=== PATIENT | female | born 1960 | race Two or more races ===

== ENCOUNTER 2024-11-17 14:15 | Inpatient (IN) | payer OTHER, MEDICAID ==
[~2024-11-17] VITALS: Ht 154.9 cm; Wt 72.4 kg
--- NOTE | 2024-11-17 14:48 | ED.PDOC ---
History of Present Illness HPI Anny 64F who is Malay speaking presents to the ER w/ no prior hx associated to the c/c of a RODRIGUEZ. Pt reports on having pressure like pain on the forehead/right adventism for 1 week which is associated w/ N/. Pt notes that her right eye is red, swollen and painful for the past 3 months. PMHx of DM. SHx of Appendectomy. Denies chills, fever, /V/D, SOB, CP or no other associated symptom's, modifiers, recent injuries or sick contacts at this time. Time Seen by MD: 14:35 Reviewed Notes: Nurses Notes, Medications, Allergies Allergies: Coded Allergies: NO KNOWN ALLERGIES (Unverified , 11/17/24) Information Source: Patient Mode of Arrival: Ambulatory Severity: Moderate Timing: Weeks Duration: Since onset Prehospital treatment: None Past Medical History PAST MEDICAL HISTORY: DM Surgical History: Appendectomy RN MED SURG History: No Pertinent RN MED SURG History Family History Family History: Reviewed,noncontributory to illness, Unknown Social History Smoker: Non-Smoker Alcohol: Denies ETOH Use Drugs: Denies Drug Use Lives In: Home Constitutional: denies: chills, diaphoresis, fatigue, fever, malaise, sweats, weakness, others EENTM: reports: eye pain, eye redness; denies: blurred vision, double vision, ear bleeding, ear discharge, ear drainage, ear pain, ear ringing, hearing loss, mouth pain, mouth swelling, nasal discharge, nose bleeding, nose congestion, nose pain, photophobia, tearing, throat pain, throat swelling, voice changes, others Respiratory: denies: cough, hemoptysis, orthopnea, SOB at rest, shortness of breath, SOB with excertion, stridor, wheezing, others Cardiovascular: denies: chest pain, dizzy spells, diaphoresis, Dyspnea on exertion, edema, irregular heart beat, left arm pain, lightheadedness, palpitations, PND, syncope, others Gastrointestinal: reports: nausea; denies: abdomen distended, abdominal pain, blood streaked bowels, constipated, diarrhea, dysphagia, difficulty swallowing, hematemesis, melena, poor appetite, poor fluid intake, rectal bleeding, rectal pain, vomiting, others Genitourinary: denies: abnormal vagina bleeding, burning, dyspareunia, dysuria, flank pain, frequency, hematuria, incontinence, pain, , vagina discharge, urgency, others Neurological: reports: headache; denies: dizziness, fainting, left sided numbness, left sided weakness, numbness, paresthesia, pre-existing deficit, right sided numbness, right sided weakness, seizure, speech problems, tingling, tremors, weakness, others Musculoskeletal: denies: back pain, gout, joint pain, joint swelling, muscle pain, muscle stiffness, neck pain, others Integumetry: denies: bruises, change in color, change in hair/nails, dryness, laceration, lesions, lumps, rash, wounds, others Allergic/Immunocompromised: denies: Difficulty Healing, Frequent Infections, Hives, Itching, others Hematologic/Lymphatic: denies: anemia, blood clots, easy bleeding, easy bruising, swollen glands, others Endocrine: denies: excessive hunger, excessive sweating, excessive thirst, excessive urination, flushing, intolerance to cold, intolerance to heat, unexplained weight gain, unexplained weight loss, others Psychiatric: denies: anxiety, bipolar disorder, depression, hopeless, panic disorder, schizophrenia, sleepless, suicidal, others All Other Systems: Reviewed and Negative Physical Exam General Appearance: Moderate Distress, Normal HEENT: Eye Lid (R) (Injected), Normal ENT Inspection, Pharynx Normal, TMs Normal Neck: Full Range of Motion, Non-Tender, Normal, Normal Inspection Respiratory: Chest Non-Tender, Lungs Clear, No Accessory Muscle Use, No Respiratory Distress, Normal Breath Sounds Cardiovascular: No Edema, No JVD, No Murmur, No Gallop, Normal Peripheral Pulses, Regular Rate/Rhythm Breast Exam: Deferred Gastrointestinal: No Organomegaly, Non Tender, No Pulsatile Mass, Normal Bowel Sounds, Soft Genitalia: Deferred Pelvic: Deferred Rectal: Deferred Extremities: No calf tenderness, Normal capillary refill, Normal inspection, Normal range of motion, Non-tender, No pedal edema Musculoskeletal : Apperance: Normal Neurologic: Alert, molder shoulder pad II-XII nml as Tested, No Motor Deficits, Normal Affect, Normal Mood, No Sensory Deficits Cerebellar Function: Normal Reflexes: Normal Skin: Dry, Normal Color, Warm Peripheral Pulses: 3+ Radial (R), 3+ Radial (L) Lymphatic: No Adenopathy Was a procedure done? Was a procedure done?: No Differential Dx Considerations may include: Anemia Electrolyte imbalance X-Ray, Labs, Meds, VS Vital Signs Date Time Temp Pulse Resp B/P (MAP) Pulse Ox O2 Delivery O2 Flow Rate FiO2 11/17/24 15:11 98.6 73 18 116/41 (66) 96 98.6 Lab Test 11/17/24 14:41 Range/Units White Blood Count 7.4 4.4-10.8 10^3/uL Red Blood Count 4.62 4.0-5.20 10^6/uL Hemoglobin 15.5 12.2-16.2 g/dL Hematocrit 45.3 36.0-46.0 % Mean Corpuscular Volume 98.2 80.0-100.0 fL Mean Corpuscular Hemoglobin 33.7 H 28.0-32.0 pg Mean Corpuscular Hemoglobin Concent 34.3 32.0-36.0 g/dL Red Cell Distribution Width 13.9 11.8-14.3 % Platelet Count 243 140-450 10^3/uL Mean Platelet Volume 7.0 6.9-10.8 fL Neutrophils (%) (Auto) 70.6 37.0-80.0 % Lymphocytes (%) (Auto) 24.3 10.0-50.0 % Monocytes (%) (Auto) 4.1 0.0-12.0 % Eosinophils (%) (Auto) 0.6 0.0-7.0 % Basophils (%) (Auto) 0.4 0.0-2.0 % Neutrophils # (Auto) 5.2 1.6-8.6 10 ^3/uL Lymphocytes # (Auto) 1.8 0.4-5.4 10 ^3/uL Monocytes # (Auto) 0.3 0-1.3 10 ^3/uL Eosinophils # (Auto) 0 0-0.8 10 ^3/uL Basophils # (Auto) 0 0-0.2 10 ^3/uL Nucleated Red Blood Cells 0.1 % Sodium Level 140 136-145 mmol/L Potassium Level 4.2 3.5-5.1 mmol/L Chloride Level 103 98-107 mmol/L Carbon Dioxide Level 30 20-31 mmol/L Anion Gap 7 5-15 Blood Urea Nitrogen 26 H 9-23 mg/dL Creatinine 1.20 H 0.550-1.02 mg/dL Glomerular Filtration Rate Calc 50 >90 mL/min BUN/Creatinine Ratio 21.7 H 10.0-20.0 Serum Glucose 193 H 74-106 mg/dL Calcium Level 10.6 H 8.7-10.4 mg/dL Patient alert pain Complaining of headache dizziness. Blood sugar elevated. WBC within normal limits. Establish intravenous access. Was given fluids. Was given meclizine. CT of the head reviewed does not show any acute changes. Possibly will need MRI. Hypercalcemia. Reviewed her history. Explained to the patient. Continue cardiac monitoring. Time of 1ST Reevaluation: 15:05 Reevaluation 1ST: Unchanged Patient Education/Counseling: Diagnosis, Treatment, Prognosis Family Education/Counseling: No Family Present Departure 1 Departure Time of Disposition: 15:34 Impression: Primary Impression: Uncontrolled diabetes mellitus Qualified Codes: E13.65 - Other specified diabetes mellitus with hyperglycemia Additional Impressions: Autonomic disorder Conjunctivitis Qualified Codes: H10.9 - Unspecified conjunctivitis Disposition: ADMITTED INPATIENT Admit to: Med Surg Condition: Guarded Critical Care Note Critical Care Time?: No Stability Stability form required: No Heart Score Heart Score: Heart Score Response (Comments) Value History Slightly Suspicious 0 EKG Normal 0 Age >65 2 Risk Factors >3 or Hx ASHD 2 Troponin N/A 0 Total 4 I personally scribed for CATRACHO TAN MD ([email or web address]) on 11/17/24 at 14:48. Electronically submitted by Nelson Lopez ([email or web address]). CATRACHO TAN MD Nov 17, 2024 14:48
[2024-11-17 15:00] LABS: Basophils # (auto) 0 10 ^3/uL (0-0.2); Basophils % (auto) 0.4 % (0.0-2.0); Eosinophils # (auto) 0 10 ^3/uL (0-0.8); Eosinophils % (auto) 0.6 % (0.0-7.0); Hematocrit 45.3 % (36.0-46.0); Hemoglobin 15.5 g/dL (12.2-16.2); Lymphocytes # (auto) 1.8 10 ^3/uL (0.4-5.4); Lymphocytes % (auto) 24.3 % (10.0-50.0); Mean Corpuscular Hemoglobin 33.7 pg (28.0-32.0); Mean Corpuscular Hgb Conc. 34.3 g/dL (32.0-36.0); Mean Corpuscular Volume 98.2 fL (80.0-100.0); Monocytes # (auto) 0.3 10 ^3/uL (0-1.3); Monocytes % (auto) 4.1 % (0.0-12.0); Neutrophils # (auto) 5.2 10 ^3/uL (1.6-8.6); Neutrophils % (auto) 70.6 % (37.0-80.0); Nucleated Red Blood Cells % 0.1 %; Platelet Count (auto) 243 10^3/uL (140-450); Red Blood Cells 4.62 10^6/uL (4.0-5.20); Red Cell Distribution Width 13.9 % (11.8-14.3); White Blood Cell 7.4 10^3/uL (4.4-10.8)
--- NOTE | 2024-11-17 15:05 | DVH ---
EXAM: CT HEAD WITHOUT CONTRAST INDICATION: tia TECHNIQUE: CT of the head without intravenous contrast. Radiation Dose : 1. Head: CT Dose: CTDI volume is 41 mGy. Dose-length product is 856 mGy*cm The dose indicators for CT are the volume Computed Tomography (CT) Dose Index (CTDIvol) and the Dose Length Product (DLP), and are measured in units of mGy and mGy-cm, respectively. These indicators are not patient dose, but values generated from the CT scanner acquisition factors. The report includes radiation exposure data for exposures received during this examination. COMPARISON: None FINDINGS: There is no evidence of acute intracranial hemorrhage, extra-axial collection, mass effect, midline s hift, herniation or hydrocephalus. The ventricles, sulci and cisterns are age appropriate. The pike-white differentiation is intact. Patchy periventricular and subcortical white matter hypoattenuation is nonspecific but may be related to small vessel ischemic disease. The visualized paranasal sinuses and mastoid air cells are clear. The surrounding soft tissues and osseous structures are unremarkable. IMPRESSION: No acute intracranial abnormality. Radiation optimization: All CT scans at this facility use at least one of these dose optimization aletha hniques: automated exposure control mA and/or kV adjustment per patient size (includes targeted exam s where dose is matched to clinical indication) or iterative reconstruction.
[2024-11-17 15:08] LABS: Anion Gap 7 (5-15); Carbon Dioxide 30 mmol/L (20-31); Chloride 103 mmol/L (98-107); Potassium 4.2 mmol/L (3.5-5.1); Sodium 140 mmol/L (136-145)
[2024-11-17 15:14] LABS: BUN/Creatinine Ratio 21.7 (10.0-20.0)
[2024-11-17 15:15] LABS: Blood Urea Nitrogen 26 mg/dL (9-23); Calcium 10.6 mg/dL (8.7-10.4); Glucose 193 mg/dL (74-106)
[2024-11-17 18:08] VITALS: PULSE 62; RESP 18; O2SAT 97
[2024-11-17 22:17] VITALS: PULSE 73; RESP 16; O2SAT 96
[2024-11-17] MEDS ORDERED: ACETAMINOPHEN 325 MG TAB PO PRN (23:00)
[2024-11-17] MEDS ORDERED: ONDANSETRON HCL 4 MG/2 ML VIAL IV PRN (23:00)
--- NOTE | 2024-11-17 23:05 | DVHHPRES ---
History of Present Illness Resident Creating Document: KATTY CHAIREZ RESIDENT Reason for Visit: dizziness, nausa History of Present Illness Patient is 64 year old female presents to the ED today with a chief complaint of headache that feels like pressure-like felt more in the frontotemporal area with associated nausea and dizziness for one week . Pain is disabling and rated 6/10 and does not radiate anywhere. There is no aggravating or relieving factor. Sometimes she feels tenderness in the temporal region however there was no associated changes in vision. 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 With regards to the dizziness, patient denied any pa lpitation or vertigo prior to experiencing the dizziness. She denies chest pain, fever nausea vomiting or diarrhea. Her blood pressure has been stable. CT head was negative. Urinalysis and UDS is pending. Past medical history: diabetes, cataracts, hypothyroidism and dry eyes Past surgical history: Benign tumor resection and on the right sclera Family history: hypertension Social history: Patient works as [employer], does not drink or smoke, has 8 children. Medication: Patient takes levothyroxine, simvastatin, glipizide, and Jardiance Review of Systems Review of Systems Constitutional: Denies fever no chills no feeling of malaise HEENT: headache; Denies ear pain, ear discharges, conjunctivitis, nasal di scharge throat pain Cardiovascular: Denies chest pain, palpitation, orthopnea, PND, or pedal edema Respiratory: Denies shortness of breath, cough cough, sputum production, hemoptysis, GI: Denies abdominal pain, nausea, vomiting, diarrhea, hematemesis, h ematochezia, : overflow urgency Endocrine: Denies unintentional weight gain or weight loss, feeling of hot flashes, Claudio: Denies easy bruising, bleeding disorders, epistaxis Musculoskeletal: Denies joint pains, muscle aches Psych: No evidence of depression, anneliese, suicidal ideation Allergies: Coded Allergies: NO KNOWN ALLERGIES (Unverified , 11/17/24) Medications Current Medications Medications Dose Ordered Sig/Bryan Route Start Time Stop Time Status Last Admin Dose Admin Sodium Chloride 1,000 ml @ 75 mls/hr [id number] IV 11/17/24 22:45 Exam Vital Signs Vital Signs Date Time Temp Pulse Resp B/P (MAP) Pulse Ox O2 Delivery O2 Flow Rate FiO2 11/17/24 22:17 73 16 96 Room Air* 0 21 11/17/24 22:17 98.7 125/67 (86) 98.7 Exam General Appearance: Alert, Oriented X3, Cooperative, No acute distress HEENT: Atraumatic, PERRLA, EOMI, Mucous membrane moist/pink Respiratory: Clear to auscultation, Normal air movement Cardiovascular: Regular rate, Normal S1, Normal S2, No murmurs, no chest wall tenderness Abdominal: NO distention, no tenderness, bowel sounds present, no scars noted Extremities: tingling sensation in her feet Skin: No rashes, No breakdown, No significant lesion Neuro: Normal gait, Normal speech, Strength at 5/5 X4 ext, Normal tone, Sensation intact, Cranial nerves 3-12 NL, Reflexes 2+ Psych/Mental Status: Mental status NL, Mood NL Labs/Xrays Labs Test 11/17/24 22:56 11/17/24 15:13 11/17/24 14:41 Range/Units POC Glucose 187 H 70-106 mg/dl White Blood Count 7.4 4.4-10.8 10^3/uL Red Blood Count 4.62 4.0-5.20 10^6/uL Hemoglobin 15.5 12.2-16.2 g/dL Hematocrit 45.3 36.0-46.0 % Mean Corpuscular Volume 98.2 80.0-100.0 fL Mean Corpuscular Hemoglobin 33.7 H 28.0-32.0 pg Mean Corpuscular Hemoglobin Concent 34.3 32.0-36.0 g/dL Red Cell Distribution Width 13.9 11.8-14.3 % Platelet Count 243 140-450 10^3/uL Mean Platelet Volume 7.0 6.9-10.8 fL Neutrophils (%) (Auto) 70.6 37.0-80.0 % Lymphocytes (%) (Auto) 24.3 10.0-50.0 % Monocytes (%) (Auto) 4.1 0.0-12.0 % Eosinophils (%) (Auto) 0.6 0.0-7.0 % Basophils (%) (Auto) 0.4 0.0-2.0 % Neutrophils # (Auto) 5.2 1.6-8.6 10 ^3/uL Lymphocytes # (Auto) 1.8 0.4-5.4 10 ^3/uL Monocytes # (Auto) 0.3 0-1.3 10 ^3/uL Eosinophils # (Auto) 0 0-0.8 10 ^3/uL Basophils # (Auto) 0 0-0.2 10 ^3/uL Nucleated Red Blood Cells 0.1 % Sodium Level 140 136-145 mmol/L Potassium Level 4.2 3.5-5.1 mmol/L Chloride Level 103 98-107 mmol/L Carbon Dioxide Level 30 20-31 mmol/L Anion Gap 7 5-15 Blood Urea Nitrogen 26 H 9-23 mg/dL Creatinine 1.20 H 0.550-1.02 mg/dL Glomerular Filtration Rate Calc 50 >90 mL/min BUN/Creatinine Ratio 21.7 H 10.0-20.0 Serum Glucose 193 H 74-106 mg/dL Calcium Level 10.6 H 8.7-10.4 mg/dL Assessment/Plan Assessment/Plan Assessment Rule out Giant cell Arteritis Uncontrolled diabetes mellitus with hyperglycemia Hyperlipidemia Hypertension Cataract Hypothyroidism Conjunctivitis Hypercalcemia Acute Kidney Injury Obesity Plan Give Tylenol normal IV fluid, NS Rule out GCA Moderate sliding scale Rule out possible Multiple myeloma Check ESR,CRP Check A1C continue home medication Diet: Diabetes diet Prophylaxis: DVT Goal of care discussed for more than 30 minutes: Full code Case and plan discussed with Dr. Lucas Plan discussed with: Patient, Son My Orders Orders - KATTY CHAIREZ RESIDENT Procedure Category Date Status Time Admit ADMIT 11/17/24 Transmitted 22:38 Code Status CODE 11/17/24 Transmitted 22:38 Vital Signs MOOSE 11/17/24 In Process 22:38 Review Orders With MOOSE 11/17/24 In Process Adm. 22:38 Notify Of Changes MOOSE 11/17/24 In Process From Base 22:38 Advance Directive MOOSE 11/17/24 In Process 22:38 Urinalysis LAB 11/17/24 Logged 22:38 Lipid Panel LAB 11/17/24 In Process 22:38 Patient Condition ORDERS 11/17/24 Transmitted 22:38 Allergies MOOSE 11/17/24 In Process 22:38 Hemoglobin A1c LAB 11/17/24 In Process 22:38 Notify Of Changes MOOSE 11/17/24 In Process From Base 22:38 Sodium Chloride 0.9% PHA 11/17/24 In Process 22:45 Basic Metabolic Panel LAB 11/18/24 Verified 04:00 Complete Blood Count LAB 11/18/24 Verified 04:00 Magnesium LAB 11/18/24 Verified 04:00 Drug Screen LAB 11/17/24 Logged 22:38 Erythrocyte LAB 11/17/24 In Process Sedimentation Rate 22:43 Parathyroid Hormone LAB 11/17/24 In Process Intact 22:43 C-Reactive Protein LAB 11/17/24 In Process 22:56 Acetaminophen Tablet PHA 11/17/24 Transmitted (Tylenol Tablet) 23:00 Regular Diet DIET 11/18/24 Transmitted Breakfast Ondansetron Hcl PHA 11/17/24 Transmitted (Zofran) 23:00 Ondansetron Hcl PHA 11/17/24 Transmitted (Zofran) 23:00 Enoxaparin Sodium PHA 11/17/24 Transmitted (Lovenox) 23:00 Enoxaparin Sodium PHA 11/18/24 Transmitted (Lovenox) 10:00 Date of Service: Nov 17, 2024 Billing Provider: SAMANTA LUCAS MD Common Visit Codes: [id number] INP/OBS CARE (HIGH) Secondary Visit Codes: [id number] CARE PLAN 30 MINUTES KATTY CHAIREZ RESIDENT Nov 17, 2024 23:05 SAMANTA LUCAS MD Nov 18, 2024 11:08
[2024-11-17 23:29] LABS: CRP High Sensitivity 0.34 mg/dL (<1.0)
[2024-11-17 23:35] VITALS: BP 140/67; PULSE 59; RESP 20; TEMP 98.7; O2SAT 95
[2024-11-18] VITALS (8 sets, daily range): BP systolic 110–125; BP diastolic 44–63; PULSE 56–64; RESP 15–17; TEMP 97.4–98.7; O2SAT 93–100
[2024-11-18 00:18] LABS: Erythrocyte Sedimentation Rate 24 mm/hr (0-20)
[2024-11-18] MEDS: ONDANSETRON HCL 4 MG/2 ML VIAL IV ONE (00:44)
[2024-11-18] MEDS: ENOXAPARIN SOD 40 MG/0.4 ML SYRINGE SC ONE (00:45)
[2024-11-18] MEDS: SODIUM CHLORIDE 0.9% 1,000 ML IV SCH (00:51)
[2024-11-18] MEDS ORDERED: LEVO25TA6 PO (01:19)
[2024-11-18] MEDS ORDERED: GLIP-197 PO (01:19)
[2024-11-18] MEDS ORDERED: EMPA1TAB3 PO (01:19)
[2024-11-18] MEDS ORDERED: NEOM0.1S10 RIGHTEYE (01:19)
[2024-11-18] MEDS ORDERED: SIMV40TA18 PO (01:19)
[2024-11-18] MEDS ORDERED: DEXTROSE (50%) 50ML SYRG IV PRN (03:45)
[2024-11-18] MEDS: ATORVASTATIN 20 MG TAB PO ONE (04:33)
[2024-11-18 05:09] LABS: Basophils # (auto) 0 10 ^3/uL (0-0.2); Basophils % (auto) 0.5 % (0.0-2.0); Eosinophils # (auto) 0.1 10 ^3/uL (0-0.8); Eosinophils % (auto) 1.3 % (0.0-7.0); Hemoglobin 14.7 g/dL (12.2-16.2); Lymphocytes # (auto) 1.8 10 ^3/uL (0.4-5.4); Lymphocytes % (auto) 32.6 % (10.0-50.0); Mean Corpuscular Hemoglobin 33.5 pg (28.0-32.0); Mean Corpuscular Hgb Conc. 34.1 g/dL (32.0-36.0); Mean Corpuscular Volume 98.1 fL (80.0-100.0); Monocytes # (auto) 0.3 10 ^3/uL (0-1.3); Monocytes % (auto) 4.9 % (0.0-12.0); Neutrophils # (auto) 3.3 10 ^3/uL (1.6-8.6); Neutrophils % (auto) 60.7 % (37.0-80.0); Nucleated Red Blood Cells % 0.1 %; Platelet Count (auto) 218 10^3/uL (140-450); Red Blood Cells 4.38 10^6/uL (4.0-5.20); Red Cell Distribution Width 13.7 % (11.8-14.3); White Blood Cell 5.4 10^3/uL (4.4-10.8)
[2024-11-18 05:38] LABS: Anion Gap 9 (5-15)
[2024-11-18 05:43] LABS: BUN/Creatinine Ratio 30.8 (10.0-20.0); Blood Urea Nitrogen 20 mg/dL (9-23)
[2024-11-18 05:44] LABS: Magnesium 2.3 mg/dL (1.6-2.6)
[2024-11-18 05:45] LABS: Calcium 9.7 mg/dL (8.7-10.4); Carbon Dioxide 23 mmol/L (20-31); Chloride 109 mmol/L (98-107); Glucose 131 mg/dL (74-106); Potassium 3.9 mmol/L (3.5-5.1); Sodium 141 mmol/L (136-145)
[2024-11-18] MEDS: ACCU-CHEK COMFORT CURVE STRIP VI SCH (06:41)
[2024-11-18] MEDS: InsuLIN REG 1unit/0.01ml Soln (100units/ml) SC SCH ×2 (06:42→23:01)
--- NOTE | 2024-11-18 09:14 | DVHPNRES ---
Progress Note Date Seen: Nov 18, 2024 Resident Creating Document: RALPH ARREGUIN RESIDENT Medical Necessity Reason Pt with a Central, PICC or Fol: No Subjective Review of Systems MONALISA LOPEZ is a 64 years old female with a PMH of type 2 DM, hypothyroidism, dry eyes presented to the ED today with a chief complaint of headache that feels like pressure-like felt more in the frontotemporal area with associated nausea and dizziness for 12 days. patient reported she has been started having pain for 12 days which is continuous, associated with nausea and dizziness aggravated by standing relieved by closing eyes and lying down. Patient denies vision changes. Patient reported 3 months back she had surgery to sclera. Patient reported she has been having some stressful events. On my assessment patient denies fever, palpitations, chest pain, shortness of breath, history of sinus and other associated symptoms. PMH: Type 2 DM, hypothyroidism, cataract, dry eyes PSH: Scleral surgery right eye 3 months back Family history: Hypertension Personal history: Does not have a job now. Denies smoking, alcohol, other drug abuse Home medications: Levothyroxine, simvastatin, glipizide, Jardiance Allergies: No known allergies Patient seen and examined at the bedside. Overnight events reviewed. Patient currently reporting headache which is bandlike. Head CT shows no acute changes. Objective vital signs Vital Sign Date Time Temp Pulse Resp B/P (MAP) Pulse Ox O2 Delivery O2 Flow Rate FiO2 11/18/24 05:00 97.7 56 16 110/44 (66) 93 97.7 11/18/24 00:52 Room Air* 0 21 Total Intake and Output 11/17/24 11/17/24 11/18/24 15:00 23:00 07:00 Intake Total 200 ml Output Total 275 ml Balance -75 ml medications Current Medications Medications Dose Ordered Sig/Bryan Route Start Time Stop Time Status Last Admin Dose Admin Sodium Chloride 1,000 ml @ 75 mls/hr [id number] IV 11/17/24 22:45 11/18/24 00:51 75 MLS/HR Acetaminophen 650 mg Q6HP PRN PO 11/17/24 23:00 Ondansetron HCl 4 mg Q6HPRN PRN IV 11/17/24 23:00 Enoxaparin Sodium 40 mg DAILY SC 11/18/24 10:00 Diagnostic Test (Pha) 1 strip ACHS 11/18/24 07:00 11/18/24 06:41 1 STRIP Insulin Human Regular HS SC 11/18/24 22:00 Insulin Human Regular AC SC 11/18/24 07:00 Dextrose 50 ml UD PRN IV 11/18/24 03:45 Levothyroxine Sodium 25 mcg DAILY PO 11/18/24 10:00 Neomycin/ Polymyxin/ Dexamethasone 1 drop QID RIGHTEYE 11/18/24 12:00 Patient Own Medication 1 tab DAILY PO 11/18/24 10:00 Atorvastatin Calcium 20 mg HS PO 11/18/24 22:00 Examination Pt is lying on bed General Appearance: Alert, Oriented X3, Cooperative, mild distress HEENT: Atraumatic, Mucous membranes moist/pink Respiratory: Clear to auscultation, Normal air movement, No added sounds Cardiovascular: Regular rate, Normal S1, Normal S2, No murmurs Abdominal: Active bowel sounds, Soft, no distention, no tenderness Extremities: No edema, Normal pulses, No tenderness/swelling Skin: No Significant rash, except past surgical scars Neuro: Normal speech, sensorimotor deficits none Psych/Mental Status: Mental status NL, Mood NL Nurse was there as sharperone during examination laboratory and microbiology Laboratory Tests 11/18/24 04:44 Test 11/18/24 04:44 Range/Units Serum Glucose 131 H 74-106 mg/dL Labs and/or images reviewed: Labs reviewed by me, Image(s) reviewed by me Problem List/Assessment/Plan Problem List/Assessment/Plan # Headache r/o Acute CVA - head CT showed no acute changes # Tension v/s migraine headache - head CT negative - pain management with acetaminophen as needed # Uncontrolled type 2 DM with HbA1c 8.2 - Accu-Cheks and ISS # JOSE ANGEL likely via [facility] - IVF - monitor lab for now # Dyslipidemia - elevated lipid panel - on Lipitor # hypothyroidism - resume home medications GI PPX: Not indicated VTE PPX: Lovenox Diet: diabetic diet Goals of care discussed with the patient for more than 29 minutes: Full code status Case discussed with Dr. Triplett, patient and nurse Plan discussed with: Patient Date of Service: Nov 18, 2024 Billing Provider: MINAL JANG MD Common Visit Codes: [id number] INP/OBS CARE(HIGH) RODRÍGUEZ,KHOLGA GRANT Nov 18, 2024 09:14 MINAL JANG MD Nov 22, 2024 00:45
[2024-11-18] MEDS: LEVOTHYROXINE SODIUM 25 MCG TAB PO SCH (09:50)
[2024-11-18] MEDS: ENOXAPARIN SOD 40 MG/0.4 ML SYRINGE SC SCH (09:52)
[2024-11-18 10:22] LABS: Hepatitis B Surface Antigen Negative (Negative); Hepatitis C Antibody Negative (Negative)
[2024-11-18] MEDS: NEOMYCIN-POLYMY-DEXAMETH 0.1% OPTH(EYE) SUSP 5ML RIGHTEYE SCH (14:37)
[2024-11-18] MEDS ORDERED: ATORVASTATIN 20 MG TAB PO SCH (22:00)
[2024-11-18] MEDS: ATORVASTATIN 20 MG TAB PO SCH (22:00)
[2024-11-19 01:00] VITALS: BP 114/64; PULSE 58; RESP 17; TEMP 97.3; O2SAT 96
[2024-11-19 05:00] VITALS: BP 108/63; PULSE 50; RESP 17; TEMP 97.4; O2SAT 99
[2024-11-19 05:35] LABS: Basophils # (auto) 0 10 ^3/uL (0-0.2); Basophils % (auto) 0.6 % (0.0-2.0); Eosinophils # (auto) 0.1 10 ^3/uL (0-0.8); Eosinophils % (auto) 2.5 % (0.0-7.0); Hematocrit 41.2 % (36.0-46.0); Hemoglobin 14.5 g/dL (12.2-16.2); Lymphocytes % (auto) 36.4 % (10.0-50.0); Mean Corpuscular Hemoglobin 34.6 pg (28.0-32.0); Mean Corpuscular Hgb Conc. 35.1 g/dL (32.0-36.0); Mean Corpuscular Volume 98.5 fL (80.0-100.0); Monocytes # (auto) 0.3 10 ^3/uL (0-1.3); Monocytes % (auto) 5.7 % (0.0-12.0); Neutrophils % (auto) 54.8 % (37.0-80.0); Platelet Count (auto) 198 10^3/uL (140-450); Red Blood Cells 4.19 10^6/uL (4.0-5.20); Red Cell Distribution Width 13.6 % (11.8-14.3); White Blood Cell 5.4 10^3/uL (4.4-10.8)
[2024-11-19 05:44] LABS: Anion Gap 6 (5-15); Carbon Dioxide 26 mmol/L (20-31); Potassium 3.9 mmol/L (3.5-5.1); Sodium 142 mmol/L (136-145)
[2024-11-19 05:48] LABS: Chloride 110 mmol/L (98-107)
[2024-11-19 05:50] LABS: BUN/Creatinine Ratio 22.4 (10.0-20.0); Blood Urea Nitrogen 15 mg/dL (9-23)
[2024-11-19 05:53] LABS: Glucose 123 mg/dL (74-106)
[2024-11-19 07:30] VITALS: O2SAT 96
[2024-11-19 09:00] VITALS: BP 120/46; PULSE 50; RESP 16; TEMP 97.5; O2SAT 98
[2024-11-19 10:19] VITALS: BP 120/46; PULSE 50; RESP 16; TEMP 97.5; O2SAT 98
--- NOTE | 2024-11-19 12:08 | DVHDSRES ---
Discharge Summary Date of Admission Resident Creating Document: RALPH ARREGUIN RESIDENT Nov 17, 2024 at 22:18 Date of Discharge: Nov 19, 2024 Admitting Diagnosis Severe headache Labs/Diagnostic Data: Laboratory Results Test 11/19/24 11:10 11/19/24 05:19 11/18/24 04:44 11/17/24 22:56 POC Glucose 189 mg/dl (70-106) White Blood Count 5.4 10^3/uL (4.4-10.8) Red Blood Count 4.19 10^6/uL (4.0-5.20) Hemoglobin 14.5 g/dL (12.2-16.2) Hematocrit 41.2 % (36.0-46.0) Mean Corpuscular Volume 98.5 fL (80.0-100.0) Mean Corpuscular Hemoglobin 34.6 pg (28.0-32.0) Mean Corpuscular Hemoglobin Concent 35.1 g/dL (32.0-36.0) Red Cell Distribution Width 13.6 % (11.8-14.3) Platelet Count 198 10^3/uL (140-450) Mean Platelet Volume 6.8 fL (6.9-10.8) Neutrophils (%) (Auto) 54.8 % (37.0-80.0) Lymphocytes (%) (Auto) 36.4 % (10.0-50.0) Monocytes (%) (Auto) 5.7 % (0.0-12.0) Eosinophils (%) (Auto) 2.5 % (0.0-7.0) Basophils (%) (Auto) 0.6 % (0.0-2.0) Neutrophils # (Auto) 3.0 10 ^3/uL (1.6-8.6) Lymphocytes # (Auto) 2.0 10 ^3/uL (0.4-5.4) Monocytes # (Auto) 0.3 10 ^3/uL (0-1.3) Eosinophils # (Auto) 0.1 10 ^3/uL (0-0.8) Basophils # (Auto) 0 10 ^3/uL (0-0.2) Nucleated Red Blood Cells 0.0 % Sodium Level 142 mmol/L (136-145) Potassium Level 3.9 mmol/L (3.5-5.1) Chloride Level 110 mmol/L (98-107) Carbon Dioxide Level 26 mmol/L (20-31) Anion Gap 6 (5-15) Blood Urea Nitrogen 15 mg/dL (9-23) Creatinine 0.67 mg/dL (0.550-1.02) Glomerular Filtration Rate Calc 96 mL/min (>90) BUN/Creatinine Ratio 22.4 (10.0-20.0) Serum Glucose 123 mg/dL (74-106) Calcium Level 9.0 mg/dL (8.7-10.4) Magnesium Level 2.3 mg/dL (1.6-2.6) Creatine Kinase 112 U/L (34-145) Thyroid Stimulating Hormone (TSH) 5.55 uIU/mL (0.55-4.78) Hepatitis B Surface Antigen Negative (Negative) Hepatitis C Antibody Negative (Negative) Erythrocyte Sedimentation Rate 24 mm/hr (0-20) Hemoglobin A1c 8.2 % A1C (<5.7) C-Reactive Protein High Sensitivity 0.34 mg/dL (<1.0) Triglycerides Level 325 mg/dL (< 150) Cholesterol Level 215 mg/dL (< 200) LDL Cholesterol 115 mg/dL (< 100) HDL Cholesterol 65 mg/dL (40-59) Parathyroid Hormone (Intact) 54.8 pg/mL (18.4-80.1) Other Laboratory Tests 11/19/24 05:19 Brief Hx & Hospital Course: MONALISA LOPEZ is a 64 years old female with a PMH of type 2 DM, hypothyroidism, dry eyes presented to the ED today with a chief complaint of headache that feels like pressure-like felt more in the frontotemporal area with associated nausea and dizziness for 12 days. patient reported she has been started having pain for 12 days which is continuous, associated with nausea and dizziness aggravated by standing relieved by closing eyes and lying down. Patient denies vision changes. Patient reported 3 months back she had surgery to sclera. Patient reported she has been having some stressful events. On my assessment patient denies fever, palpitations, chest pain, shortness of breath, history of sinus and other associated symptoms. Patient required hospital admission further evaluation and management of headache. Head CT showed no acute changes. Patient continuously complaining of bandlike headache. Patient was on pain management as needed. Due to JOSE ANGEL patient lab was continuously monitored and given IVF. Due to dyslipidemia patient was on Lipitor. Patient condition was improved, hemodynamically stable and in condition to be discharged home. Patient will advised about stress relaxation techniques and to follow healthy diet along with exercise. Patient will advised to follow up with PCP. Pt is lying on bed General Appearance: Alert, Oriented X3, Cooperative, Not in acute distress HEENT: Atraumatic, Mucous membranes moist/pink Respiratory: Clear to auscultation, Normal air movement, No added sounds Cardiovascular: Regular rate, Normal S1, Normal S2, No murmurs Abdominal: Active bowel sounds, Soft, no distention, no tenderness Extremities: No edema, Normal pulses, No tenderness/swelling Skin: No Significant rash, except past surgical scars Neuro: Normal speech, sensorimotor deficits none Psych/Mental Status: Mental status NL, Mood NL Nurse was there as sharperone during examination Operations or Procedures CT head without contrast IMPRESSION: No acute intracranial abnormality. Condition at Discharge: Stable Final Diagnosis/Problems List # Headache r/o Acute CVA # Tension v/s migraine headache # Uncontrolled type 2 DM with HbA1c 8.2 # JOSE ANGEL likely via [facility] # Dyslipidemia # hypothyroidism # temporal arteritis/conjunctivitis ruled out Discharge Disposition: Home Discharge Instruct/Medications Diet: Consistent carbohydrate, Cardiac 2g Na,low cholest Activity: No Restrictions, As Tolerated Follow Up/Referral: PCP Medications: Resume home meds Discharge Statement: "Patient was advised to return to the ER or call 911 if any headaches, dizziness, shortness of breath, chest pain, abdominal pain, bleeding, fevers, or worsening of medical condition. Patient was counseled about treatment plan, medications, possible side effects, patientverbalized understanding. All questions were answered to the best of my ability. This discharge took greater then 30 minutes in planning, reviewing documentation, counseling the patient, and discussing with other team members." ASSESSMENT ASSESSMENT Assessment Tension v/s migraine headaches Date of Service: Nov 19, 2024 Billing Provider: MINAL JANG MD Common Visit Codes: 31975-ULK/OBS DISCH DAY >30min RALPH ARREGUIN RESIDENT Nov 19, 2024 12:08 MINAL JANG MD Nov 22, 2024 01:21
== END 2024-11-19 11:50 | disposition home or self-care (01) | DRG 102 ==
LOC: ER 14:15 → OVERFLOW 22:18 → CENTRAL 22:43
PROVIDERS: ADMIT Student in an Organized Health Care Education/Training Program; ATTEND Emergency Medicine
DX: G43.909 Migraine, unspecified, not intractable, without status migrainosus (principal); N17.0 Acute kidney failure with tubular necrosis; G44.209 Tension-type headache, unspecified, not intractable; G90.89 Other disorders of autonomic nervous system; E11.65 Type 2 diabetes mellitus with hyperglycemia; E78.5 Hyperlipidemia, unspecified; I10 Essential (primary) hypertension; E66.9 Obesity, unspecified; E83.52 Hypercalcemia; E03.9 Hypothyroidism, unspecified; Z90.49 Acquired absence of other specified parts of digestive tract; Z82.49 Family history of ischemic heart disease and other diseases of the circulatory system; Z68.30 Body mass index [BMI] 30.0-30.9, adult; Z79.899 Other long term (current) drug therapy
CPT/HCPCS: 36415; 70450; 80048; 80061; 82550; 82962; 83036; 83735; 83970; 84443; 85025; 85652; 86141; 86803; 87340; G0378; J1815; J2405

== ENCOUNTER 2024-11-27 06:54 | Emergency (ER) | payer OTHER, MEDICAID ==
[~2024-11-27] VITALS: Ht 154.9 cm; Wt 70.7 kg
[~2024-11-27 06:54] MED LIST: EMPA1TAB3 PO; GLIP-197 PO; LEVO25TA6 PO; NEOM0.1S10 RIGHTEYE; SIMV40TA18 PO
[2024-11-27 07:56] VITALS: BP 159/78; PULSE 74; RESP 18; TEMP 97.9; O2SAT 95
== END 2024-11-27 07:45 | disposition left against medical advice (07) ==
LOC: ER 06:54
DX: R42 Dizziness and giddiness (principal); Z53.21 Procedure and treatment not carried out due to patient leaving prior to being seen by health care provider